=== PATIENT | male | born 1980 | race Two or more races ===

== ENCOUNTER 2020-06-06 17:05 | Emergency (ER) | payer SELFPAY ==
[~2020-06-06] VITALS: Ht 167.6 cm; Wt 68.5 kg
[2020-06-06 17:14] VITALS: BP 128/82
--- NOTE | 2020-06-06 17:15 | NUR ---
ED Nurse Note: Patient walked in to ER from home due to left thigh bump and possible insect bite that is getting bigger started 3 weeks ago as a small bump. Patient AAO x4, VSS at this time.
--- NOTE | 2020-06-06 17:25 | Emergency Room Report ---
History of Present Illness General Chief Complaint: Skin Rash/Abscess Source: Patient Present Illness HPI 39-year-old male with history of type 2 diabetes currently insulin-dependent here complaining of 1 week of left thigh lesion that is now increasing in size and redness as well as warmth. Denies any fever and chills. Has full range of motion of the affected side, denies any tingling or numbness. Denies chest pain, shortness of breath, headache and dizziness reports that he was working outside and he saw a spider biting him a week ago. Has not taken medication for symptom relief. No abscess formation noted. Patient is neurovascularly intact. Allergies: Coded Allergies: No Known Allergies (Unverified , 06/06/20) COVID-19 Screening Contact w/high risk pt: No Experienced COVID-19 symptoms?: No COVID-19 Testing performed [employer]: No Patient History Past Medical History: see triage record Past Surgical History: none Pertinent Family History: none Immunizations: UTD Reviewed Nursing Documentation: PMH: Agreed; PSxH: Agreed Nursing Documentation-PMH Past Medical History: No History, Except For Hx Diabetes: Yes Review of Systems All Other Systems: negative except mentioned in HPI Physical Exam Vital Signs Date Time Temp Pulse Resp B/P (MAP) Pulse Ox O2 Delivery O2 Flow Rate FiO2 06/06/20 17:09 98.8 104 15 128/82 (97) 94 Room Air Sp02 EP Interpretation: reviewed, normal General Appearance: no apparent distress, alert, GCS 15, non-toxic Head: normocephalic, atraumatic Eyes: bilateral eye normal inspection, bilateral eye PERRL ENT: hearing grossly normal, normal pharynx, no angioedema, normal voice Neck: full range of motion, supple/symm/no masses Respiratory: chest non-tender, lungs clear, normal breath sounds, speaking full sentences Cardiovascular #1: regular rate, rhythm, no edema Cardiovascular #2: 2+ dorsalis pedis (R), 2+ dorsalis pedis (L) Gastrointestinal: soft Genitourinary: no CVA tenderness Musculoskeletal: back normal, no calf tenderness, pelvis stable, non-tender, swelling - Left medial thigh warm to touch Neurologic: alert, motor strength/tone normal, oriented x3, sensory intact, responsive, speech normal Psychiatric: judgement/insight normal, memory normal, mood/affect normal, no suicidal/homicidal ideation Skin: other - Cellulitis left thigh Lymphatic: no adenopathy Medical Decision Making PA Attestation All my diagnosis and treatment plans were reviewed ad discussed with my supervising physician Dr. Escobar Diagnostic Impression: Primary Impression: Cellulitis of left leg ER Course 39-year-old male with history of type 2 diabetes currently insulin-dependent here complaining of 1 week of left thigh lesion that is now increasing in size and redness as well as warmth. Denies any fever and chills. Has full range of motion of the affected side, denies any tingling or numbness. Denies chest pain, shortness of breath, headache and dizziness reports that he was working ou [employer] and he saw a spider biting him a week ago. Has not taken medication for symptom relief. No abscess formation noted. Patient is neurovascularly intact. Ddx considered but are not limited to : Cellulitis, DVT, superficial infection, abscess Vital signs: are WNL, pt. is afebrile H&PE are most consistent with: Cellulitis left thigh ORDERS: Keflex, Bactrim DS, Motrin ED INTERVENTIONS: None required at this time. DISCHARGE: At this time pt. is stable for d/c to home. Will provide printed patient care instructions, and any necessary prescriptions. Care plan and follow up instructions have been discussed with the patient prior to discharge. At this time patient does not need any blood work is stable and afebrile range of motion of affected side, no abscess seen, advised patient return to the emergency room for worsening symptoms. Last Vital Signs Date Time Temp Pulse Resp B/P (MAP) Pulse Ox O2 Delivery O2 Flow Rate FiO2 06/06/20 17:14 98.8 15 128/82 94 Room Air 06/06/20 17:09 104 Disposition: HOME, SELF-CARE Condition: Stable Scripts Ibuprofen* (MOTRIN*) 600 Mg Tablet 600 MG ORAL Q6H PRN for For Pain, #30 TAB 0 Refills Prov: Mo Estrada 06/06/20 Trimethoprim/Sulfamethoxazole 160/800* (BACTRIM DS TABLET*) 1 Each Tablet 1 TAB ORAL TWICE A DAY for 7 Days, #14 TAB Prov: Mo Estrada 06/06/20 Cephalexin* (KEFLEX*) 500 Mg Capsule 500 MG ORAL EVERY 6 HOURS for 7 Days, #28 CAP Prov: Mo Estrada 06/06/20 Patient Instructions: Cellulitis, [id number] Additional Instructions: Take medication as directed, follow-up with your primary care provider, if worsening symptoms return to the emergency room Mo Estrada Jun 06, 2020 17:25
[2020-06-06] MEDS ORDERED: IBUPROFEN600 M1 ORAL (17:28)
[2020-06-06] MEDS ORDERED: CEPHALEXIN500 MG ORAL (17:28)
[2020-06-06] MEDS ORDERED: BACTRIM DS TAB1 EAC1 ORAL (17:28)
[2020-06-06 17:39] VITALS: BP 128/82
--- NOTE | 2020-06-06 17:40 | NUR ---
ED Nurse Note: Pt cleared by health care Provider for discharge. DC instructions/prescription was given and explained to pt and verbalized understanding of teachings. All medical deviecs such as ID band removed. Pt is AAO x4, ambulatory and left with all personal belongings.
== END 2020-06-06 17:39 | disposition home or self-care (01) ==
LOC: EMR 17:30
DX: L03.116 Cellulitis of left lower limb (principal); E11.9 Type 2 diabetes mellitus without complications
CPT/HCPCS: 99282